=== PATIENT | male | born 1935 | race Caucasian/White ===

== ENCOUNTER 2016-11-18 21:52 | Inpatient (IN) | payer OTHER ==
[~2016-11-18] VITALS: Ht 177.8 cm; Wt 90.5 kg
[~2016-11-18 21:52] MED LIST: ACET-868 PO; ACET325T53 PO; ALBU2.5V13 NEB; ASPI-495 PO; ASPI81TA2 PO; CARV6.252 PO; CLOP75TA2 PO; FURO-144 PO; HYDR25TA4 PO; HYDR25TA9 PO; ISOS30TA6 PO; OMEG1CAP40 PO; SIMV20TA6 PO; VALS160T2 PO; VALS160T24 PO; [UNRECOGNIZED DRUG - CODE] PO
[2016-11-18 22:28] LABS: BASOPHILS % (AUTO) 0.3 % (0.0-2.0); DIFF TOTAL % 100 %; EOSINOPHILS # (AUTO) 0.6 /CMM (0.0-0.7); EOSINOPHILS % (AUTO) 5.8 % (0.0-6.0); HEMATOCRIT 44 % (39-51); HEMOGLOBIN 14.7 g/dL (13.5-17.5); LYMPHOCYTES # (AUTO) 2.9 /CMM (0.8-4.8); LYMPHOCYTES % (AUTO) 29.4 % (20.0-44.0); MEAN CORPUSCULAR HEMOGLOBIN 30 PG (26.0-33.0); MEAN CORPUSCULAR HGB CONC 33 g/dl (31.0-36.0); MEAN CORPUSCULAR VOLUME 91 fL (80-96); MONOCYTES # (AUTO) 0.6 /CMM (0.1-1.30); MONOCYTES % (AUTO) 6.4 % (2.0-12.0); NEUTROPHILS # (AUTO) 5.8 /CMM (1.8-8.9); NEUTROPHILS % (AUTO) 58.1 % (43.0-81.0); PLATELET COUNT (AUTO) 242 /CMM (150-450); RED BLOOD CELL COUNT(AUTO) 4.85 MIL/uL (4.5-6.0); WHITE BLOOD COUNT (AUTO) 9.9 K/uL (4.3-11.0)
[2016-11-18] MEDS ORDERED: ASPIRIN 81 MG TAB.CHEW PO ONE (22:30)
[2016-11-18 22:36] LABS: CALCIUM, SERUM 9.5 mg/dL (8.5-10.1); CREATININE 1.6 mg/dL (0.6-1.3); POTASSIUM 3.8 mmol/L (3.5-5.1)
[2016-11-18 22:44] LABS: TROPONIN I 0.056 ng/mL (0.00-0.056)
[2016-11-18 22:50] LABS: INR 1.04 (0.87-1.13); PROTHROMBIN TIME 11.2 SECS (9.5-12.7)
[2016-11-18] MEDS ORDERED: ASPIRIN 81 MG TAB.CHEW ONE (23:01)
[2016-11-18] MEDS ORDERED: IV SET PRIMARY 1 EA INFUS.SET MC ONE (23:29)
[2016-11-18] MEDS ORDERED: IV NS 0.9% 500 ML IV ONE (23:29)
[2016-11-18] MEDS ORDERED: Magnesium 1GM/D5W 100ML PREMIX 200 ML IV ONE (23:30)
[2016-11-18] MEDS ORDERED: Magnesium 1 GM/2 ML VIAL IV ONE (23:30)
[2016-11-18] MEDS ORDERED: IV NS 0.9% 1,000 ML BAG IV ONE (23:30)
[2016-11-19] VITALS (8 sets, daily range): BP systolic 114–155; BP diastolic 64–72
[2016-11-19] MEDS ORDERED: ALBUTEROL FS 2.5 MG/0.5 ML VIAL.NEB NEB PRN (01:30)
[2016-11-19] MEDS ORDERED: IV NS 0.9% 500 ML BAG IV ONE (01:30)
[2016-11-19] MEDS ORDERED: ZOLPIDEM TARTRATE 5 MG TABLET PO PRN (01:30)
[2016-11-19] MEDS ORDERED: MAGNESIUM HYDROXIDE 30 ML UDC PO PRN (01:30)
[2016-11-19] MEDS ORDERED: MAG HYDROX/AL HYDROX/SIMETH 30 ML UDC PO PRN (01:30)
[2016-11-19] MEDS ORDERED: ACETAMINOPHEN 325 MG TABLET PO PRN (01:30)
[2016-11-19] MEDS ORDERED: HYDROCODONE/APAP 5/325MG 1 EACH TABLET PO PRN (01:30)
[2016-11-19] MEDS ORDERED: ONDANSETRON HCL/PF 4 MG/2 ML VIAL IVP PRN (01:30)
[2016-11-19] MEDS ORDERED: CARVEDILOL 6.25 MG TABLET PO SCH (10:23)
[2016-11-19] MEDS: ISOSORBIDE MONONITRATE (30MG) 30 MG TAB.SR.24H PO SCH ×2 (10:24→10:42)
[2016-11-19] MEDS ORDERED: Z GUARD REMEDY 2 OZ OINT TP PRN (10:25)
[2016-11-19] MEDS: FUROSEMIDE 40 MG TABLET PO SCH ×2 (10:26→10:42)
[2016-11-19] MEDS: CLOPIDOGREL BISULFATE 75 MG TABLET PO SCH ×2 (10:26→10:42)
[2016-11-19] MEDS: ASPIRIN 81 MG TAB.CHEW PO SCH (10:42)
[2016-11-19] MEDS: HYDROCHLOROTHIAZIDE 25 MG TABLET PO SCH (10:43)
[2016-11-19] MEDS: VALSARTAN 80 MG TABLET PO SCH (10:51)
[2016-11-19] MEDS ORDERED: AMIODARONE 900 MG in IV D5W 482 ML IV PRN (11:30)
[2016-11-19] MEDS ORDERED: AMIODARONE 150 MG in IV D5W 100 ML IV ONE (11:30)
[2016-11-19] MEDS ORDERED: CARVEDILOL 6.25 MG TABLET PO ONE (11:30)
[2016-11-19] MEDS ORDERED: POTASSIUM CHLORIDE 20 MEQ POWDER PACKET PO ONE (12:00)
[2016-11-19] MEDS ORDERED: IV SET PRIMARY PUMP SET 1 EA INFUS.SET MC ONE (12:34)
[2016-11-19] MEDS: Magnesium 1GM/D5W 100ML PREMIX 100 ML IV SCH ×3 (12:37→14:35)
[2016-11-19 13:01] LABS: ALBUMIN 3.7 g/dL (3.4-5.0); BILIRUBIN,DIRECT 0.1 mg/dL (0.0-0.2); BILIRUBIN,TOTAL 0.5 mg/dL (0.2-1.0); INDIRECT BILIRUBIN 0.4 mg/dL (0.0-1.1); TOTAL PROTEIN, SERUM 7.6 g/dL (6.4-8.2)
[2016-11-19] MEDS: Fenofibrate 48 MG TABLET PO SCH (13:19)
[2016-11-19 13:30] LABS: TROPONIN I 0.067 ng/mL (0.00-0.056)
[2016-11-19] MEDS: AMIODARONE 900 MG in IV D5W 482 ML IV PRN (13:38)
[2016-11-19] MEDS: SIMVASTATIN 20 MG TABLET PO SCH (17:29)
[2016-11-19] MEDS: FATTY ACIDS PO SCH (18:17)
[2016-11-19] MEDS: FISH OIL PO SCH (18:17)
[2016-11-19] MEDS: OMEGA PO SCH (18:17)
[2016-11-19] MEDS: CARVEDILOL 6.25 MG TABLET PO SCH (21:11)
[2016-11-20] VITALS: BP 126/58
[2016-11-20 04:00] VITALS: BP 136/62
[2016-11-20] MEDS: AMIODARONE 900 MG in IV D5W 482 ML IV PRN (04:45)
[2016-11-20 07:10] LABS: BASOPHILS % (AUTO) 0.3 % (0.0-2.0); DIFF TOTAL % 100 %; EOSINOPHILS # (AUTO) 0.7 /CMM (0.0-0.7); EOSINOPHILS % (AUTO) 5.9 % (0.0-6.0); HEMATOCRIT 43 % (39-51); HEMOGLOBIN 14.7 g/dL (13.5-17.5); LYMPHOCYTES # (AUTO) 2.7 /CMM (0.8-4.8); LYMPHOCYTES % (AUTO) 23.3 % (20.0-44.0); MEAN CORPUSCULAR HEMOGLOBIN 31 PG (26.0-33.0); MEAN CORPUSCULAR HGB CONC 34 g/dl (31.0-36.0); MEAN CORPUSCULAR VOLUME 91 fL (80-96); MONOCYTES % (AUTO) 8.7 % (2.0-12.0); NEUTROPHILS % (AUTO) 61.8 % (43.0-81.0); PLATELET COUNT (AUTO) 217 /CMM (150-450); RED BLOOD CELL COUNT(AUTO) 4.76 MIL/uL (4.5-6.0); WHITE BLOOD COUNT (AUTO) 11.4 K/uL (4.3-11.0)
[2016-11-20 07:24] LABS: CALCIUM, SERUM 8.6 mg/dL (8.5-10.1); CREATININE 1.5 mg/dL (0.6-1.3); PHOSPHORUS 3.1 mg/dL (2.5-4.9); POTASSIUM 4.1 mmol/L (3.5-5.1)
[2016-11-20 08:00] VITALS: BP 140/74
[2016-11-20] MEDS: FISH OIL PO SCH ×2 (08:40→17:00)
[2016-11-20] MEDS: FATTY ACIDS PO SCH ×2 (08:40→17:00)
[2016-11-20] MEDS: OMEGA PO SCH ×2 (08:40→17:00)
[2016-11-20] MEDS: ASPIRIN 81 MG TAB.CHEW PO SCH (08:40)
[2016-11-20] MEDS: ISOSORBIDE MONONITRATE (30MG) 30 MG TAB.SR.24H PO SCH (08:41)
[2016-11-20] MEDS: CARVEDILOL 6.25 MG TABLET PO SCH ×2 (08:41→23:14)
[2016-11-20] MEDS: Fenofibrate 48 MG TABLET PO SCH (08:42)
[2016-11-20] MEDS: VALSARTAN 80 MG TABLET PO SCH (08:42)
[2016-11-20] MEDS: HYDROCHLOROTHIAZIDE 25 MG TABLET PO SCH (08:42)
[2016-11-20] MEDS ORDERED: FUROSEMIDE 20 MG/2 ML VIAL IV ONE (10:00)
[2016-11-20] MEDS: AMIODARONE HCL 200 MG TABLET PO SCH ×2 (10:30→21:00)
[2016-11-20 12:00] VITALS: BP 111/50
[2016-11-20 16:00] VITALS: BP 93/54
[2016-11-20] MEDS: SIMVASTATIN 20 MG TABLET PO SCH (17:00)
[2016-11-20 20:00] VITALS: BP 123/47
[2016-11-21] VITALS: BP 137/60
[2016-11-21 04:00] VITALS: BP 105/58
[2016-11-21 07:01] LABS: BASOPHILS % (AUTO) 0.3 % (0.0-2.0); DIFF TOTAL % 100 %; EOSINOPHILS # (AUTO) 0.8 /CMM (0.0-0.7); EOSINOPHILS % (AUTO) 6.8 % (0.0-6.0); HEMATOCRIT 44 % (39-51); HEMOGLOBIN 14.6 g/dL (13.5-17.5); LYMPHOCYTES # (AUTO) 3.1 /CMM (0.8-4.8); LYMPHOCYTES % (AUTO) 25.4 % (20.0-44.0); MEAN CORPUSCULAR HEMOGLOBIN 31 PG (26.0-33.0); MEAN CORPUSCULAR HGB CONC 33 g/dl (31.0-36.0); MEAN CORPUSCULAR VOLUME 91 fL (80-96); MONOCYTES # (AUTO) 1.1 /CMM (0.1-1.30); MONOCYTES % (AUTO) 8.7 % (2.0-12.0); NEUTROPHILS # (AUTO) 7.1 /CMM (1.8-8.9); NEUTROPHILS % (AUTO) 58.8 % (43.0-81.0); PLATELET COUNT (AUTO) 231 /CMM (150-450); RED BLOOD CELL COUNT(AUTO) 4.77 MIL/uL (4.5-6.0); WHITE BLOOD COUNT (AUTO) 12.1 K/uL (4.3-11.0)
[2016-11-21 07:07] LABS: CALCIUM, SERUM 9.1 mg/dL (8.5-10.1); CREATININE 1.9 mg/dL (0.6-1.3); POTASSIUM 4.1 mmol/L (3.5-5.1)
[2016-11-21 08:00] VITALS: BP 121/63
[2016-11-21] MEDS: VALSARTAN 80 MG TABLET PO SCH (08:48)
[2016-11-21] MEDS: ISOSORBIDE MONONITRATE (30MG) 30 MG TAB.SR.24H PO SCH (08:48)
[2016-11-21] MEDS: HYDROCHLOROTHIAZIDE 25 MG TABLET PO SCH (08:48)
[2016-11-21] MEDS: CARVEDILOL 6.25 MG TABLET PO SCH ×2 (08:49→22:12)
[2016-11-21] MEDS: ASPIRIN 81 MG TAB.CHEW PO SCH (08:49)
[2016-11-21] MEDS: Fenofibrate 48 MG TABLET PO SCH (08:49)
[2016-11-21] MEDS: FUROSEMIDE 20 MG TABLET PO SCH (08:49)
[2016-11-21] MEDS: FISH OIL PO SCH ×2 (08:50→17:45)
[2016-11-21] MEDS: OMEGA PO SCH ×2 (08:50→17:45)
[2016-11-21] MEDS: FATTY ACIDS PO SCH ×2 (08:50→17:45)
[2016-11-21] MEDS: AMIODARONE HCL 200 MG TABLET PO SCH ×2 (08:50→21:31)
[2016-11-21 12:00] VITALS: BP 90/47
[2016-11-21 16:00] VITALS: BP 122/58
[2016-11-21] MEDS: SIMVASTATIN 20 MG TABLET PO SCH (17:45)
[2016-11-21 20:00] VITALS: BP 105/43
[2016-11-22] VITALS (7 sets, daily range): BP systolic 118–138; BP diastolic 58–83
[2016-11-22 07:30] LABS: BASOPHILS % (AUTO) 0.3 % (0.0-2.0); DIFF TOTAL % 100 %; EOSINOPHILS # (AUTO) 0.6 /CMM (0.0-0.7); EOSINOPHILS % (AUTO) 5.4 % (0.0-6.0); HEMATOCRIT 42 % (39-51); HEMOGLOBIN 14.1 g/dL (13.5-17.5); LYMPHOCYTES # (AUTO) 2.6 /CMM (0.8-4.8); LYMPHOCYTES % (AUTO) 24.2 % (20.0-44.0); MEAN CORPUSCULAR HEMOGLOBIN 31 PG (26.0-33.0); MEAN CORPUSCULAR HGB CONC 34 g/dl (31.0-36.0); MEAN CORPUSCULAR VOLUME 91 fL (80-96); MONOCYTES # (AUTO) 0.9 /CMM (0.1-1.30); MONOCYTES % (AUTO) 8.6 % (2.0-12.0); NEUTROPHILS # (AUTO) 6.6 /CMM (1.8-8.9); NEUTROPHILS % (AUTO) 61.5 % (43.0-81.0); PLATELET COUNT (AUTO) 210 /CMM (150-450); WHITE BLOOD COUNT (AUTO) 10.7 K/uL (4.3-11.0)
[2016-11-22] MEDS: OMEGA PO SCH ×2 (09:00→17:46)
[2016-11-22] MEDS: FUROSEMIDE 20 MG TABLET PO SCH (09:00)
[2016-11-22] MEDS ORDERED: VALSARTAN 80 MG TABLET PO SCH (09:00)
[2016-11-22] MEDS: FISH OIL PO SCH ×2 (09:00→17:46)
[2016-11-22] MEDS: FATTY ACIDS PO SCH ×2 (09:00→17:46)
[2016-11-22] MEDS: ASPIRIN 81 MG TAB.CHEW PO SCH (10:17)
[2016-11-22] MEDS: AMIODARONE HCL 200 MG TABLET PO SCH ×2 (10:17→20:26)
[2016-11-22] MEDS: CARVEDILOL 6.25 MG TABLET PO SCH ×2 (10:18→20:25)
[2016-11-22] MEDS: HYDROCHLOROTHIAZIDE 25 MG TABLET PO SCH (10:19)
[2016-11-22] MEDS: Fenofibrate 48 MG TABLET PO SCH (10:19)
[2016-11-22] MEDS: ISOSORBIDE MONONITRATE (30MG) 30 MG TAB.SR.24H PO SCH (10:20)
[2016-11-22] MEDS: SIMVASTATIN 20 MG TABLET PO SCH (17:48)
== END 2016-11-22 23:00 | disposition short-term general hospital (02) | DRG 314 ==
LOC: ER 21:58 → TELE 11-19 00:05 → TELE1 11-19 11:55 → TELE-TD 11-19 11:57 → TELE1 11-20 09:22
PROVIDERS: ADMIT Family Medicine; ATTEND Family Medicine
PROC: 4B02XSZ Measurement of Cardiac Pacemaker, External Approach (ICD-10-PCS; principal; 2016-11-19)
DX: T82.897A Other specified complication of cardiac prosthetic devices, implants and grafts, initial encounter (principal); I50.23 Acute on chronic systolic (congestive) heart failure; I47.2 Ventricular tachycardia; N17.9 Acute kidney failure, unspecified; I13.0 Hypertensive heart and chronic kidney disease with heart failure and stage 1 through stage 4 chronic kidney disease, or unspecified chronic kidney disease; R55 Syncope and collapse; N18.9 Chronic kidney disease, unspecified; D72.829 Elevated white blood cell count, unspecified; E78.5 Hyperlipidemia, unspecified; E83.42 Hypomagnesemia; I25.10 Atherosclerotic heart disease of native coronary artery without angina pectoris; I25.2 Old myocardial infarction; I25.5 Ischemic cardiomyopathy; E11.9 Type 2 diabetes mellitus without complications; Z87.891 Personal history of nicotine dependence; Z95.1 Presence of aortocoronary bypass graft; Y84.9 Medical procedure, unspecified as the cause of abnormal reaction of the patient, or of later complication, without mention of misadventure at the time of the procedure; Y92.009 Unspecified place in unspecified non-institutional (private) residence as the place of occurrence of the external cause
CPT/HCPCS: 36415; 70450-TC; 71010-TC; 80048-TC; 80061-TC; 80076-TC; 83735-TC; 84100-TC; 84484-TC; 85025-TC; 85730-TC; 87081-TC; A4606; J0282; J1940; J3475; J7040; J7060; Z7610

== ENCOUNTER 2017-10-09 11:45 | Emergency (ER) | payer OTHER ==
[~2017-10-09] VITALS: Ht 175.3 cm; Wt 90.7 kg
[2017-10-09 11:45] VITALS: BP 157/89
[2017-10-09] MEDS ORDERED: TDAP [DIPH/PERTUSSIS/TET] 0.5 ML VIAL IM ONE ×2 (13:15→13:30)
== END 2017-10-09 13:29 | disposition home or self-care (01) ==
LOC: ER 11:53
DX: S91.332A Puncture wound without foreign body, left foot, initial encounter (principal); E11.9 Type 2 diabetes mellitus without complications; I25.2 Old myocardial infarction; I10 Essential (primary) hypertension; Z95.1 Presence of aortocoronary bypass graft; Z79.82 Long term (current) use of aspirin; Z95.0 Presence of cardiac pacemaker; W22.8XXA Striking against or struck by other objects, initial encounter; Y93.01 Activity, walking, marching and hiking; Y92.89 Other specified places as the place of occurrence of the external cause; Y99.8 Other external cause status
CPT/HCPCS: 73650; 90471; 90715; 99284; A4606; Z7610

== ENCOUNTER 2017-10-30 17:01 | Emergency (ER) | payer OTHER ==
[~2017-10-30] VITALS: Ht 180.3 cm; Wt 90.7 kg
[~2017-10-30 17:01] MED LIST changes: +ASPI-1169 PO; -ASPI81TA2 PO; +CLOP75TA15 PO; -CLOP75TA2 PO; +FENO145T45 PO; -[UNRECOGNIZED DRUG - CODE] PO
[2017-10-30] MEDS ORDERED: ALBUTEROL FS 2.5 MG/0.5 ML VIAL.NEB ONE (17:51)
[2017-10-30] MEDS ORDERED: IPRATROPIUM NEB FS 0.5 MG/2.5 ML AMPUL.NEB ONE (17:51)
[2017-10-30] MEDS ORDERED: ONDANSETRON HCL/PF 4 MG/2 ML VIAL ONE (17:58)
[2017-10-30] MEDS ORDERED: IPRATROPIUM NEB FS 0.5 MG/2.5 ML AMPUL.NEB NEB ONE (18:00)
[2017-10-30] MEDS ORDERED: ALBUTEROL FS 2.5 MG/0.5 ML VIAL.NEB NEB ONE (18:00)
[2017-10-30] MEDS ORDERED: ONDANSETRON HCL/PF 4 MG/2 ML VIAL IVP ONE (18:00)
[2017-10-30] MEDS ORDERED: IV NS 0.9% 1,000 ML BAG IV ONE (18:00)
[2017-10-30 18:11] LABS: BASOPHILS # (AUTO) 0.1 /CMM (0.0-0.2); BASOPHILS % (AUTO) 0.7 % (0.0-2.0); EOSINOPHILS # (AUTO) 0.4 /CMM (0.0-0.7); EOSINOPHILS % (AUTO) 4.3 % (0.0-6.0); HEMATOCRIT 42 % (39-51); HEMOGLOBIN 14.2 g/dL (13.5-17.5); LYMPHOCYTES # (AUTO) 1.6 /CMM (0.8-4.8); LYMPHOCYTES % (AUTO) 16.5 % (20.0-44.0); MEAN CORPUSCULAR HEMOGLOBIN 30 PG (26.0-33.0); MEAN CORPUSCULAR HGB CONC 34 g/dl (31.0-36.0); MEAN CORPUSCULAR VOLUME 91 fL (80-96); MONOCYTES # (AUTO) 0.7 /CMM (0.1-1.30); MONOCYTES % (AUTO) 7.7 % (2.0-12.0); NEUTROPHILS # (AUTO) 6.7 /CMM (1.8-8.9); NEUTROPHILS % (AUTO) 70.8 % (43.0-81.0); PLATELET COUNT (AUTO) 231 /CMM (150-450); RDW COEFFICIENT OF VARIATION 13.7 (11.5-15.0); RED BLOOD CELL COUNT(AUTO) 4.67 MIL/uL (4.5-6.0); WHITE BLOOD COUNT (AUTO) 9.5 K/uL (4.3-11.0)
[2017-10-30 18:16] LABS: CALCIUM, SERUM 9.4 mg/dL (8.5-10.1); CARBON DIOXIDE 28 mmol/L (21-32); CHLORIDE 102 mmol/L (98-107); CREATININE 2.4 mg/dL (0.6-1.3); GLUCOSE 100 mg/dL (74-106); POTASSIUM 3.7 mmol/L (3.5-5.1); SODIUM SERUM 139 mmol/L (136-145); UREA NITROGEN, BLOOD 30 mg/dL (7-18)
[2017-10-30 18:17] LABS: INR 0.99 (0.87-1.13); PROTHROMBIN TIME 10.3 SECS (9.5-12.7)
[2017-10-30 18:24] LABS: ALANINE AMINOTRANSFERASE 40 U/L (12-78); ALBUMIN 3.6 g/dL (3.4-5.0); ALKALINE PHOSPHATASE 75 U/L (46-116); ASPARTATE AMINOTRANSFERASE 34 U/L (15-37); BILIRUBIN,DIRECT 0.1 mg/dL (0.0-0.2); BILIRUBIN,TOTAL 0.6 mg/dL (0.2-1.0); TROPONIN I 0.033 ng/mL (0.00-0.056)
--- NOTE | 2017-10-30 19:30 | NUR ---
ASSUMED CARE FOR D/C PURPOSES ONLY. IV removed. Catheter intact and site benign. Pressure and 4x4 applied to site. No bleeding noted.
--- NOTE | 2017-10-30 19:33 | NUR ---
Patient discharged to home in stable condition. Written and verbal after care instructions given. Patient verbalizes understanding of instruction AND RX. PT'S SON IS DRIVING PT HOME. VSS. PT AMBULATED OUT WITH A STEADY GAIT.
[2017-10-30 19:39] VITALS: BP 142/71
== END 2017-10-30 19:30 | disposition home or self-care (01) ==
LOC: ER 17:09
DX: J06.9 Acute upper respiratory infection, unspecified (principal); N28.9 Disorder of kidney and ureter, unspecified; I10 Essential (primary) hypertension; E11.9 Type 2 diabetes mellitus without complications; F17.200 Nicotine dependence, unspecified, uncomplicated; Z95.1 Presence of aortocoronary bypass graft; Z95.0 Presence of cardiac pacemaker; Z79.82 Long term (current) use of aspirin
CPT/HCPCS: 36415; 71045; 80048; 80076; 83605; 84484; 85025; 85730; 87040 ×2; 87804; 93005; 94640; 96361; 96374; 99285; A4606; J2405; J7030; 87400; Z7610

== ENCOUNTER 2018-06-15 10:37 | Emergency (ER) | payer OTHER ==
[~2018-06-15] VITALS: Ht 177.8 cm; Wt 90.7 kg
[~2018-06-15 10:37] MED LIST changes: -VALS160T24 PO; +VALS160T29 PO
[2018-06-15 11:23] LABS: BASOPHILS # (AUTO) 0.2 /CMM (0.0-0.2); BASOPHILS % (AUTO) 1.2 % (0.0-2.0); EOSINOPHILS % (AUTO) 7.7 % (0.0-6.0); HEMATOCRIT 43 % (39-51); HEMOGLOBIN 14.6 g/dL (13.5-17.5); LYMPHOCYTES # (AUTO) 1.4 /CMM (0.8-4.8); MEAN CORPUSCULAR HEMOGLOBIN 31 PG (26.0-33.0); MEAN CORPUSCULAR HGB CONC 34 g/dl (31.0-36.0); MEAN CORPUSCULAR VOLUME 90 fL (80-96); MONOCYTES # (AUTO) 0.7 /CMM (0.1-1.30); MONOCYTES % (AUTO) 5.3 % (2.0-12.0); NEUTROPHILS # (AUTO) 9.5 /CMM (1.8-8.9); NEUTROPHILS % (AUTO) 74.8 % (43.0-81.0); PLATELET COUNT (AUTO) 239 /CMM (150-450); RDW COEFFICIENT OF VARIATION 13.8 (11.5-15.0); RED BLOOD CELL COUNT(AUTO) 4.77 MIL/uL (4.5-6.0); WHITE BLOOD COUNT (AUTO) 12.8 K/uL (4.3-11.0)
[2018-06-15 11:28] LABS: CALCIUM, SERUM 9.3 mg/dL (8.5-10.1); CARBON DIOXIDE 29 mmol/L (21-32); CHLORIDE 103 mmol/L (98-107); CREATININE 1.4 mg/dL (0.6-1.3); GLUCOSE 136 mg/dL (74-106); POTASSIUM 3.4 mmol/L (3.5-5.1); SODIUM SERUM 137 mmol/L (136-145); UREA NITROGEN, BLOOD 20 mg/dL (7-18)
[2018-06-15 11:34] LABS: ALANINE AMINOTRANSFERASE 28 U/L (12-78); ALBUMIN 3.3 g/dL (3.4-5.0); ALKALINE PHOSPHATASE 81 U/L (46-116); ASPARTATE AMINOTRANSFERASE 19 U/L (15-37); BILIRUBIN,DIRECT 0.1 mg/dL (0.0-0.2); BILIRUBIN,TOTAL 0.4 mg/dL (0.2-1.0); LIPASE 120 U/L (73-393); TOTAL PROTEIN, SERUM 7.8 g/dL (6.4-8.2)
--- NOTE | 2018-06-15 14:13 | NUR ---
Patient discharged to home in stable condition. Written and verbal after care instructions given. Patient verbalizes understanding of instruction.
--- NOTE | 2018-06-15 14:13 | NUR ---
IV removed. Catheter intact and site benign. Pressure and 4x4 applied to site. No bleeding noted.
[2018-06-15 14:31] VITALS: BP 141/84
== END 2018-06-15 14:31 | disposition home or self-care (01) ==
LOC: ER 10:39
DX: R10.84 Generalized abdominal pain (principal); R07.89 Other chest pain; I10 Essential (primary) hypertension; E11.9 Type 2 diabetes mellitus without complications; F17.200 Nicotine dependence, unspecified, uncomplicated; Z95.1 Presence of aortocoronary bypass graft; Z95.0 Presence of cardiac pacemaker; Z60.2 Problems related to living alone; Z79.82 Long term (current) use of aspirin
CPT/HCPCS: 36415; 71045; 80048; 80076; 83690; 84484 ×2; 85025; 93005; 99285; A4606; J7030; Z7610

== ENCOUNTER 2019-01-14 10:28 | Emergency (ER) | payer OTHER ==
[~2019-01-14] VITALS: Ht 177.8 cm; Wt 93.0 kg
--- NOTE | 2019-01-14 10:47 | NUR ---
BIB RA60 C/O SOB, WHEEZING. GIVEN 2 SPRAYS OF NITRO & ALBUTEROL HHN IN FIELD. BG 110. PT AAOX4, DENIES CP, DIZZINESS, N/V, WEAKNESS @ THIS TIME. PLACED ON RESISTOR WINDER, PACING. AWAITING EVAL BY ERMVeronica/PA & WILL CONT TO MONITOR.
[2019-01-14 11:32] LABS: BASOPHILS # (AUTO) 0.1 /CMM (0.0-0.2); BASOPHILS % (AUTO) 0.7 % (0.0-2.0); EOSINOPHILS % (AUTO) 9.3 % (0.0-6.0); HEMATOCRIT 42 % (39-51); HEMOGLOBIN 14.1 g/dL (13.5-17.5); LYMPHOCYTES # (AUTO) 1.5 /CMM (0.8-4.8); LYMPHOCYTES % (AUTO) 14.9 % (20.0-44.0); MEAN CORPUSCULAR HGB CONC 33 g/dl (31.0-36.0); MEAN CORPUSCULAR VOLUME 93 fL (80-96); MONOCYTES # (AUTO) 0.7 /CMM (0.1-1.30); MONOCYTES % (AUTO) 6.3 % (2.0-12.0); NEUTROPHILS # (AUTO) 7.2 /CMM (1.8-8.9); NEUTROPHILS % (AUTO) 68.8 % (43.0-81.0); PLATELET COUNT (AUTO) 232 /CMM (150-450); RED BLOOD CELL COUNT(AUTO) 4.52 MIL/uL (4.5-6.0); WHITE BLOOD COUNT (AUTO) 10.4 K/uL (4.3-11.0)
[2019-01-14 11:40] LABS: CARBON DIOXIDE 25 mmol/L (21-32); CHLORIDE 104 mmol/L (98-107); CREATININE 1.4 mg/dL (0.6-1.3); GLUCOSE 135 mg/dL (74-106); POTASSIUM 3.8 mmol/L (3.5-5.1); SODIUM SERUM 140 mmol/L (136-145); UREA NITROGEN, BLOOD 16 mg/dL (7-18)
[2019-01-14 11:52] LABS: ALANINE AMINOTRANSFERASE 31 U/L (12-78); ALBUMIN 3.1 g/dL (3.4-5.0); ALKALINE PHOSPHATASE 76 U/L (46-116); ASPARTATE AMINOTRANSFERASE 29 U/L (15-37); B-TYPE NATRIURETIC PEPTIDE 2498 PG/ML (0-125); BILIRUBIN,DIRECT 0.2 mg/dL (0.0-0.2); BILIRUBIN,TOTAL 0.6 mg/dL (0.2-1.0); TOTAL PROTEIN, SERUM 7.4 g/dL (6.4-8.2)
[2019-01-14] MEDS ORDERED: FUROSEMIDE 40 MG/4 ML VIAL IV ONE (13:00)
--- NOTE | 2019-01-14 13:01 | NUR ---
MEDICATED FOR SOB, PT CAMRON WELL.
[2019-01-14] MEDS ORDERED: ASPIRIN 325 MG TABLET PO ONE (14:00)
[2019-01-14 14:29] VITALS: BP 138/67
--- NOTE | 2019-01-14 14:30 | NUR ---
PT STS " I FEEL MUCH BETTER, I CAN GET OUTTA HERE ". DENIES CP, SOB, DIZZINESS, N/V @ THIS TIME. PT URINATED, 550 ML URINE OUTPUT. NAD NOTED @ THIS TIME. WILL CONT TO MONITOR.
--- NOTE | 2019-01-14 14:36 | NUR ---
SPOKE TO MARGARET BUSINESS INTELLIGENCE ANALYST FROM [facility].
[2019-01-14] MEDS ORDERED: ASPIRIN 325 MG TABLET ONE (14:43)
--- NOTE | 2019-01-14 15:02 | NUR ---
SANTY, PENSION AGENT FOR [facility] PT WILL GO TO URGENT CARE, OBSERVATION UNIT. CONTACT # [phone]. YEYO FROM URGENT CARE WILL CALL BACK FOR TRANSPORT INFO.
--- NOTE | 2019-01-14 15:28 | NUR ---
PATIENT WILL BE TRANSFERRED TO [facility] ACCORDING TO [facility] EN ROUTE WITH ETA OF 90 MIN NUMBER FOR REPORT IS
--- NOTE | 2019-01-14 15:45 | NUR ---
URINE OUTPUT: 400 ML
--- NOTE | 2019-01-14 15:50 | NUR ---
CALLED [facility] & REPORT GIVEN TO SHYLA WYATT FOR CONT OF CARE.
--- NOTE | 2019-01-14 17:20 | NUR ---
PT EN ROUTE TO [facility] VIA [facility] FOR CONT OF CARE.
== END 2019-01-14 17:25 | disposition short-term general hospital (02) ==
LOC: ER 10:34
DX: I11.0 Hypertensive heart disease with heart failure (principal); I50.9 Heart failure, unspecified; E11.9 Type 2 diabetes mellitus without complications; F17.200 Nicotine dependence, unspecified, uncomplicated; Z95.0 Presence of cardiac pacemaker; Z95.1 Presence of aortocoronary bypass graft; Z60.2 Problems related to living alone; Z79.82 Long term (current) use of aspirin
CPT/HCPCS: 36415; 71045; 80048; 80076; 83880; 84484; 85025; 87081; 87804 ×2; 93005; 96374; 99285; A4606; J1940; 87400

== ENCOUNTER 2019-08-07 21:36 | Emergency (ER) | payer OTHER ==
[~2019-08-07] VITALS: Ht 177.8 cm; Wt 83.5 kg
--- NOTE | 2019-08-07 21:40 | NUR ---
PT BIB SON C/O COUGH AND CONGESTION X1 MONTH, WORSE IN THE PAST 3-5 DAYS. PT DENIES ANY PAIN. DENIES CHEST DISCOMFORT. NAD NOTED. PT ON MONITOR IN BED 3 WITH FAMILY AT BEDSIDE. RT CALLED FOR BREATHING TREATMENT.
--- NOTE | 2019-08-07 21:52 | NUR ---
PHLEB AT BEDSIDE FOR LAB DRAW
--- NOTE | 2019-08-07 21:54 | NUR ---
TECH AT BEDSIDE FOR EKG
[2019-08-07 22:00] LABS: BASOPHILS # (AUTO) 0.1 /CMM (0.0-0.2); BASOPHILS % (AUTO) 0.7 % (0.0-2.0); HEMATOCRIT 43 % (39-51); HEMOGLOBIN 14.2 g/dL (13.5-17.5); LYMPHOCYTES # (AUTO) 1.9 /CMM (0.8-4.8); LYMPHOCYTES % (AUTO) 14.3 % (20.0-44.0); MEAN CORPUSCULAR HGB CONC 34 g/dl (31.0-36.0); MEAN CORPUSCULAR VOLUME 92 fL (80-96); MONOCYTES # (AUTO) 0.8 /CMM (0.1-1.30); MONOCYTES % (AUTO) 5.8 % (2.0-12.0); NEUTROPHILS # (AUTO) 6.9 /CMM (1.8-8.9); NEUTROPHILS % (AUTO) 52.5 % (43.0-81.0); PLATELET COUNT (AUTO) 243 /CMM (150-450); WHITE BLOOD COUNT (AUTO) 13.1 K/uL (4.3-11.0)
[2019-08-07] MEDS ORDERED: IPRATROPIUM NEB FS 0.5 MG/2.5 ML AMPUL.NEB NEB ONE ×3 (22:00→22:30)
[2019-08-07] MEDS ORDERED: ALBUTEROL FS 2.5 MG/3 ML VIAL.NEB NEB ONE ×2 (22:00→22:30)
[2019-08-07 22:11] LABS: CALCIUM, SERUM 8.9 mg/dL (8.5-10.1); CARBON DIOXIDE 24 mmol/L (21-32); CHLORIDE 104 mmol/L (98-107); CREATININE 1.3 mg/dL (0.6-1.3); GLUCOSE 138 mg/dL (74-106); POTASSIUM 3.7 mmol/L (3.5-5.1); SODIUM SERUM 138 mmol/L (136-145); UREA NITROGEN, BLOOD 19 mg/dL (7-18)
[2019-08-07 22:13] LABS: EOSINOPHILS % (AUTO) 26.7 % (0.0-6.0)
--- NOTE | 2019-08-07 22:13 | NUR ---
RADIOLOGY AT BEDSIDE FOR XRAY
[2019-08-07] MEDS ORDERED: predniSONE 20 MG TABLET ONE (22:22)
[2019-08-07 22:24] LABS: ALANINE AMINOTRANSFERASE 29 U/L (12-78); ALBUMIN 3.2 g/dL (3.4-5.0); ALKALINE PHOSPHATASE 102 U/L (46-116); ASPARTATE AMINOTRANSFERASE 34 U/L (15-37); B-TYPE NATRIURETIC PEPTIDE 2547 PG/ML (0-125); BILIRUBIN,DIRECT 0.1 mg/dL (0.0-0.2); BILIRUBIN,TOTAL 0.3 mg/dL (0.2-1.0); TOTAL PROTEIN, SERUM 7.6 g/dL (6.4-8.2)
[2019-08-07] MEDS ORDERED: predniSONE 50 MG TABLET PO ONE (22:30)
[2019-08-07] MEDS ORDERED: ALBUTEROL FS 2.5 MG/0.5 ML VIAL.NEB NEB ONE (22:30)
[2019-08-07 23:29] LABS: LYMPHOCYTES % (MANUAL) 12 % (16-48); NEUTROPHILS % (MANUAL) 53 (42-76)
[2019-08-07 23:30] LABS: EOSINOPHILS % (MANUAL) 33 % (0-4); MONOCYTES % (MANUAL) 2 % (0-11.0)
[2019-08-07] MEDS ORDERED: FUROSEMIDE 40 MG/4 ML VIAL IV ONE (23:30)
[2019-08-07] MEDS ORDERED: IPRATROPIUM NEB FS 0.5 MG/2.5 ML AMPUL.NEB ONE (23:31)
[2019-08-07] MEDS ORDERED: ALBUTEROL FS 2.5 MG/3 ML VIAL.NEB ONE (23:31)
[2019-08-07] MEDS ORDERED: FUROSEMIDE 40 MG/4 ML VIAL ONE (23:38)
--- NOTE | 2019-08-08 00:02 | NUR ---
R HAND 20G INITIATED
--- NOTE | 2019-08-08 00:45 | NUR ---
CALL [facility] FOR UPDATE ON WHERE PT IS [phone]
--- NOTE | 2019-08-08 01:17 | NUR ---
PT RESTING IN BED. DENIES PAIN AT THIS TIME. VSS.
--- NOTE | 2019-08-08 02:09 | NUR ---
NUMBER FOR REPORT [phone] [facility] 1 EXT [phone]. ROOM [id number]. AMBULANCE ETA 3AM
--- NOTE | 2019-08-08 02:11 | NUR ---
CALLED [facility] FAMILY [facility]. UPDATED ON PATIENT TRANSFER INFORMATION.
--- NOTE | 2019-08-08 02:30 | NUR ---
REPORT GIVEN TO SHYLA VICENTE AT [facility] FOR [facility]
--- NOTE | 2019-08-08 03:01 | NUR ---
[facility] AT BEDSIDE REPORT GIVEN TO [facility].
[2019-08-08 03:02] VITALS: BP 148/76
== END 2019-08-08 03:19 | disposition short-term general hospital (02) ==
LOC: ER 21:38
DX: I11.0 Hypertensive heart disease with heart failure (principal); I50.9 Heart failure, unspecified; I25.10 Atherosclerotic heart disease of native coronary artery without angina pectoris; E78.5 Hyperlipidemia, unspecified; E11.9 Type 2 diabetes mellitus without complications; Z95.1 Presence of aortocoronary bypass graft; Z95.0 Presence of cardiac pacemaker; Z87.891 Personal history of nicotine dependence; Z60.2 Problems related to living alone; Z79.82 Long term (current) use of aspirin
CPT/HCPCS: 36415; 71045; 80048; 80076; 83880; 84484; 85025; 93005; 94640; 96374; 99291; A6403; J1940; J7512

== ENCOUNTER 2019-11-14 12:40 | Emergency (ER) | payer MEDICARE ==
[~2019-11-14] VITALS: Ht 177.8 cm; Wt 85.7 kg
[~2019-11-14 12:40] MED LIST changes: +SIMV-46 PO; -SIMV20TA6 PO
--- NOTE | 2019-11-14 12:59 | NUR ---
PT BIB FAMILY WITH A C/O RT SIDED CP THAT HAS BEEN GETTING WORSE. PT IS C/O YELLOW TINGED SPUTUM. PT WAS PLACED ON THE MONITOR AND CONTINUOUS PULSE OX. PT HAS A PACEMAKER IN [place]. PT WILL CONTINUE TO BE MONITORED.
[2019-11-14 13:08] LABS: BASOPHILS # (AUTO) 0.1 /CMM (0.0-0.2); BASOPHILS % (AUTO) 0.9 % (0.0-2.0); EOSINOPHILS % (AUTO) 10.8 % (0.0-6.0); HEMATOCRIT 46 % (39-51); HEMOGLOBIN 15.3 g/dL (13.5-17.5); LYMPHOCYTES # (AUTO) 1.7 /CMM (0.8-4.8); LYMPHOCYTES % (AUTO) 15.3 % (20.0-44.0); MEAN CORPUSCULAR HGB CONC 33 g/dl (31.0-36.0); MEAN CORPUSCULAR VOLUME 93 fL (80-96); MONOCYTES # (AUTO) 0.8 /CMM (0.1-1.30); MONOCYTES % (AUTO) 6.8 % (2.0-12.0); NEUTROPHILS # (AUTO) 7.4 /CMM (1.8-8.9); NEUTROPHILS % (AUTO) 66.2 % (43.0-81.0); PLATELET COUNT (AUTO) 254 /CMM (150-450); RED BLOOD CELL COUNT(AUTO) 4.93 MIL/uL (4.5-6.0); WHITE BLOOD COUNT (AUTO) 11.2 K/uL (4.3-11.0)
[2019-11-14 13:13] LABS: CALCIUM, SERUM 9.2 mg/dL (8.5-10.1); CREATININE 1.3 mg/dL (0.6-1.3); POTASSIUM 4.2 mmol/L (3.5-5.1)
[2019-11-14 13:26] LABS: ALBUMIN 3.1 g/dL (3.4-5.0); BILIRUBIN,DIRECT 0.2 mg/dL (0.0-0.2); BILIRUBIN,TOTAL 0.5 mg/dL (0.2-1.0); TOTAL PROTEIN, SERUM 7.6 g/dL (6.4-8.2)
--- NOTE | 2019-11-14 15:37 | NUR ---
IV removed. Catheter intact and site benign. Pressure and 4x4 applied to site. No bleeding noted.
[2019-11-14 15:48] VITALS: BP 125/65
== END 2019-11-14 15:50 | disposition home or self-care (01) ==
LOC: ER 12:41
DX: R07.89 Other chest pain (principal); I11.0 Hypertensive heart disease with heart failure; I50.9 Heart failure, unspecified; E11.9 Type 2 diabetes mellitus without complications; F17.200 Nicotine dependence, unspecified, uncomplicated; Z95.0 Presence of cardiac pacemaker; Z95.818 Presence of other cardiac implants and grafts; Z60.2 Problems related to living alone; Z79.899 Other long term (current) drug therapy; Z79.82 Long term (current) use of aspirin
CPT/HCPCS: 36415; 71045-TC; 80048-TC; 80076-TC; 83880; 84484-TC; 85025-TC

== ENCOUNTER 2019-12-29 00:31 | Emergency (ER) | payer MEDICARE ==
[~2019-12-29] VITALS: Ht 180.3 cm; Wt 81.6 kg
--- NOTE | 2019-12-29 00:35 | NUR ---
PT AAOX4. BIBRA60 FROM HOME C/O GENERALIZED WEAKNESS. PT'S FAMILY STATES THAT THE PT FELT WEAK AND DIZZY IN THE RESTROOM. PT THEN SLOWLY SAT DOWN ON THE FLOOR WHERE HE WAS FOUND. RA WAS THEN CALLED. PT PLACED IN GOWN, ON MONITOR, AND PULSE OX. AWAITING MD FOR EVAL. WILL CONTINUE TO MONITOR.
--- NOTE | 2019-12-29 00:43 | NUR ---
xray at bedside
[2019-12-29] MEDS ORDERED: ONDANSETRON HCL/PF 4 MG/2 ML VIAL ONE (00:47)
--- NOTE | 2019-12-29 00:58 | NUR ---
manager material at bedside for labs
[2019-12-29] MEDS ORDERED: ONDANSETRON HCL/PF 4 MG/2 ML VIAL IVP ONE (01:00)
[2019-12-29] MEDS ORDERED: IV NS 0.9% 500 ML BAG IV ONE (01:00)
--- NOTE | 2019-12-29 01:00 | NUR ---
Venkata merino in [facility] - 12/29/19 at 0130 by [facility] XRAY AT BEDSIDE
[2019-12-29 01:03] LABS: BASOPHILS # (AUTO) 0.1 /CMM (0.0-0.2); BASOPHILS % (AUTO) 0.8 % (0.0-2.0); EOSINOPHILS % (AUTO) 10.9 % (0.0-6.0); HEMATOCRIT 43 % (39-51); HEMOGLOBIN 14.7 g/dL (13.5-17.5); LYMPHOCYTES # (AUTO) 2.1 /CMM (0.8-4.8); LYMPHOCYTES % (AUTO) 20.9 % (20.0-44.0); MEAN CORPUSCULAR HGB CONC 34 g/dl (31.0-36.0); MEAN CORPUSCULAR VOLUME 92 fL (80-96); MONOCYTES # (AUTO) 1.1 /CMM (0.1-1.30); MONOCYTES % (AUTO) 10.6 % (2.0-12.0); NEUTROPHILS # (AUTO) 5.7 /CMM (1.8-8.9); NEUTROPHILS % (AUTO) 56.8 % (43.0-81.0); PLATELET COUNT (AUTO) 235 /CMM (150-450); RED BLOOD CELL COUNT(AUTO) 4.69 MIL/uL (4.5-6.0)
[2019-12-29 01:11] LABS: CALCIUM, SERUM 9.3 mg/dL (8.5-10.1); CARBON DIOXIDE 28 mmol/L (21-32); CHLORIDE 103 mmol/L (98-107); CREATININE 1.7 mg/dL (0.6-1.3); GLUCOSE 121 mg/dL (74-106); POTASSIUM 3.2 mmol/L (3.5-5.1); SODIUM SERUM 140 mmol/L (136-145); UREA NITROGEN, BLOOD 23 mg/dL (7-18)
--- NOTE | 2019-12-29 01:15 | NUR ---
FAMILY AT BEDSIDE
[2019-12-29 01:17] LABS: ALANINE AMINOTRANSFERASE 33 U/L (12-78); ALBUMIN 3.3 g/dL (3.4-5.0); ALKALINE PHOSPHATASE 102 U/L (46-116); ASPARTATE AMINOTRANSFERASE 42 U/L (15-37); BILIRUBIN,DIRECT 0.1 mg/dL (0.0-0.2); BILIRUBIN,TOTAL 0.3 mg/dL (0.2-1.0); TOTAL PROTEIN, SERUM 7.5 g/dL (6.4-8.2)
--- NOTE | 2019-12-29 01:35 | NUR ---
URINE SENT TO LAB
[2019-12-29 01:42] LABS: APPEARANCE,URINE Clear (CLEAR); BILIRUBIN,URINE Negative (NEGATIVE); BLOOD, URINE Small Ery/uL (NEGATIVE); COLOR,URINE Yellow (YELLOW); KETONES,URINE Negative (NEGATIVE); LEUKOCYTE ESTERASE ,URINE Negative (NEGATIVE); NITRITE, URINE Negative (NEGATIVE); PH,URINE 5.5 (5.0-8.0); PROTEIN,URINE Negative (NEGATIVE); UGLUCOSE Negative (NEGATIVE); UROBILINOGEN,URINE 0.2 EU/dL (0.2)
[2019-12-29 02:02] LABS: BACTERIA,URINE Rare /HPF (None Seen); SQUAMOUS EPITHELIAL CELL,UR Rare /HPF (None Seen); WBC,URINE 0-2 /HPF (0-3)
--- NOTE | 2019-12-29 02:09 | NUR ---
Pt to [facility] by Dr Albrecht. # for report [phone]. ETA [id number]
[2019-12-29 02:20] VITALS: BP 116/59
--- NOTE | 2019-12-29 02:24 | NUR ---
REPOT GIVEN TO SONIA
--- NOTE | 2019-12-29 03:09 | NUR ---
Report given to transport. VSS.
== END 2019-12-29 03:19 | disposition short-term general hospital (02) ==
LOC: ER 00:39
DX: I24.9 Acute ischemic heart disease, unspecified (principal); R53.1 Weakness; R51 Headache; I10 Essential (primary) hypertension; E11.9 Type 2 diabetes mellitus without complications; I25.2 Old myocardial infarction; Z95.1 Presence of aortocoronary bypass graft; Z95.0 Presence of cardiac pacemaker; Z60.2 Problems related to living alone; Z79.82 Long term (current) use of aspirin; Z79.899 Other long term (current) drug therapy
CPT/HCPCS: 36415; 70450-TC; 71045-TC; 80048-TC; 80076-TC; 81000-TC; 84484-TC; 85025-TC; 85730-TC; J2405; J7040